=== PATIENT | male | born 1975 | race Two or more races ===

== ENCOUNTER 2019-01-23 12:58 | Emergency (ER) | payer SELFPAY ==
[~2019-01-23] VITALS: Ht 182.9 cm; Wt 94.0 kg
[2019-01-23] MEDS ORDERED: KETOROLAC 30MG/ML VIAL IV STA (13:17)
[2019-01-23] MEDS ORDERED: SODIUM CHLORIDE 0.9% 1,000 ML IV ONE (13:17)
[2019-01-23] MEDS ORDERED: ONDANSETRON HCL 4MG/2ML INJ IV STA (13:17)
[2019-01-23] MEDS ORDERED: MORPHINE SULFATE 4 MG/ML CPJ (NOT FOR IM USE) IV STA (13:17)
[2019-01-23] MEDS ORDERED: DEXAMETHASONE 10 MG/ML VIAL IV ONE (13:30)
[2019-01-23 15:30] VITALS: BP 112/70
== END 2019-01-23 15:50 | disposition home or self-care (01) ==
LOC: ER 12:58
DX: G89.29 Other chronic pain (principal); M54.5 Low back pain; J45.909 Unspecified asthma, uncomplicated
CPT/HCPCS: 72100; 96374; 96375; 99283; J1100; J1885; J2270; J2405; J7030; J7040; Z7610